=== PATIENT | female | born 1950 | race Asian ===

== ENCOUNTER 2017-03-24 18:42 | Emergency (ER) | payer MEDICARE, MEDICAID | END 2017-03-24 20:29 | disposition home or self-care (01) | LOC: ERS 18:42 | DX: B37.2 Candidiasis of skin and nail (principal); M19.90 Unspecified osteoarthritis, unspecified site | CPT/HCPCS: 36416; 99283 ==

== ENCOUNTER 2017-04-27 08:53 | Emergency (ER) | payer MEDICARE, MEDICAID ==
[2017-04-27] MEDS ORDERED: Acetaminophen 325 MG TAB ONE (10:30)
[2017-04-27] MEDS ORDERED: Dexamethasone 4 MG TAB ONE (11:15)
== END 2017-04-27 11:25 | disposition home or self-care (01) ==
LOC: ERS 08:53
DX: J02.9 Acute pharyngitis, unspecified (principal)
CPT/HCPCS: 87081; 87430; 99283; J8540

== ENCOUNTER 2017-06-01 08:00 | Outpatient (CLI) | payer MEDICARE, MEDICAID | END 2017-06-01 08:01 | disposition home or self-care (01) | LOC: BICMRI 08:00 | PROVIDERS: ATTEND Orthopaedic Surgery Hand Surgery | DX: S83.209A Unspecified tear of unspecified meniscus, current injury, unspecified knee, initial encounter (principal); M25.561 Pain in right knee; M25.562 Pain in left knee; M22.41 Chondromalacia patellae, right knee; M22.42 Chondromalacia patellae, left knee ==

== ENCOUNTER 2017-12-15 16:03 | Outpatient (CLI) | payer MEDICARE, MEDICAID | END 2017-12-15 16:04 | disposition home or self-care (01) | LOC: BICMAMMO 16:03 | PROVIDERS: ATTEND Family Medicine | DX: Z12.31 Encounter for screening mammogram for malignant neoplasm of breast (principal) | CPT/HCPCS: 77063; 77067 ==

== ENCOUNTER 2018-03-31 07:25 | Day surgery (SDC) | payer MEDICARE, MEDICAID ==
[2018-03-30 09:18] VITALS: BMI 22.1
--- NOTE | 2018-03-31 11:38 | OP ---
DATE OF SERVICE: 03/31/2018 PROCEDURE: Colonoscopy with snare polypectomy. SURGEON: Iron Hair M.D. ANESTHESIA: Medication given per Anesthesiology Department. PREOPERATIVE DIAGNOSIS: Colon screening. POSTOPERATIVE DIAGNOSES: 1. Three colon polyps, cecum, hepatic flexure, and sigmoid colon. 2. Otherwise normal colon exam. PROCEDURE IN DETAIL: A written consent was obtained prior to procedure. After adequate sedation, re ctal exam performed was normal. Endoscope was advanced to the cecum. The quality of the bowel prep was good. Three polyps size ranging from 4-5 mm were noted in the cecum, hepatic flexure, and sigmoi d colon. These polyps were removed with cold snare. The remaining of the colon exam was normal. Th e mucosa appeared normal. No other lesion was noted. Retroflexion was normal. The patient tolerate d the procedure well. ASSESSMENT: 1. Three colon polyps, status post snare polypectomy. 2. Otherwise normal colon exam. RECOMMENDATIONS: 1. Await biopsy result. 2. Future surveillance depends on biopsy result.
--- NOTE | 2018-03-31 12:56 | OP ---
PROCEDURE: Esophagogastroduodenoscopy. PHYSICIAN: Iron Hair M.D. MEDICATION: Given per Anesthesiology Department. PREPROCEDURE DIAGNOSIS: Gastroesophageal reflux. POSTPROCEDURE DIAGNOSES: 1. Nonerosive distal esophagitis. 2. Otherwise normal upper endoscopy. PROCEDURE IN DETAILS: Written consent was obtained prior to procedure. After adequate sedation, the forward-viewing endoscope was advanced down the hypopharynx under direct vision to second portion of duodenum. The duodenum appeared normal. The pylorus is patent. The gastric antrum, body, fundus, and cardia all appeared normal. GE junction was noted at 35 cm from the incisors. In the lower 10 c m of the esophagus, mucosal erythema was noted without any evidence of erosions with loss of vascular ity. Endoscopic findings consistent with nonerosive esophagitis. The mid and upper esophagus appear ed normal. Patient tolerated the procedure well. ASSESSMENT: 1. Nonerosive distal esophagitis. 2. Otherwise normal upper endoscopy. RECOMMENDATIONS: 1. Antireflux measures discussed. 2. Omeprazole 20 mg OTC q.a.m.
== END 2018-03-31 11:30 | disposition home or self-care (01) ==
LOC: SDC 07:25
PROVIDERS: ATTEND Internal Medicine Gastroenterology
PROC: 0DBH8ZX Excision of Cecum, Via Natural or Artificial Opening Endoscopic, Diagnostic (ICD-10-PCS; principal; 2018-03-31)
PROC: 0DBL8ZX Excision of Transverse Colon, Via Natural or Artificial Opening Endoscopic, Diagnostic (ICD-10-PCS; 2018-03-31)
PROC: 0DBN8ZZ Excision of Sigmoid Colon, Via Natural or Artificial Opening Endoscopic (ICD-10-PCS; 2018-03-31)
PROC: 0DJ08ZZ Inspection of Upper Intestinal Tract, Via Natural or Artificial Opening Endoscopic (ICD-10-PCS; 2018-03-31)
DX: D12.0 Benign neoplasm of cecum (principal); K63.5 Polyp of colon; K20.9 Esophagitis, unspecified; K58.0 Irritable bowel syndrome with diarrhea; K21.9 Gastro-esophageal reflux disease without esophagitis; E78.00 Pure hypercholesterolemia, unspecified; M19.90 Unspecified osteoarthritis, unspecified site; F99 Mental disorder, not otherwise specified; Z79.83 Long term (current) use of bisphosphonates; Z79.899 Other long term (current) drug therapy; Z88.2 Allergy status to sulfonamides; Z91.013 Allergy to seafood
CPT/HCPCS: 88305

== ENCOUNTER 2018-11-26 15:30 | Outpatient (CLI) | payer MEDICARE, MEDICAID ==
--- NOTE | 2018-11-26 16:33 | BD ---
Exam: DEXA Bone Density 11/26/18 INDICATIONS: Postmenopausal osteoporosis screening. Lumbar Spine: BMD (g/cm2) T-SCORE L1 0.832 -1.4 L2 0.950 -0.7 L3 0.934 -1.4 L4 1.176 1.0 L1-L4 0.984 -0.6 Femoral Neck: 0.543 -2.8 Total Femur: 0.795 -1.2 Impression: 1. Bone mineral density of the femoral neck indicates osteoporosis. 2. Bone mineral density of the lumbar spine within normal range. POS: OFF
== END 2018-11-26 15:31 | disposition home or self-care (01) ==
LOC: BICMAMMO 15:30
PROVIDERS: ATTEND Family Medicine
DX: Z13.820 Encounter for screening for osteoporosis (principal); Z00.00 Encounter for general adult medical examination without abnormal findings; Z78.0 Asymptomatic menopausal state; M85.88 Other specified disorders of bone density and structure, other site
CPT/HCPCS: 77080

== ENCOUNTER 2020-04-03 16:57 | Emergency (ER) | payer MEDICARE, MEDICAID ==
[2020-04-03] MEDS ORDERED: Dicyclomine 20 MG TAB ONE (20:31)
[2020-04-03] MEDS ORDERED: hydrOXYzine Pamoate 25 mg Capsule ONE (20:32)
[2020-04-03] MEDS ORDERED: hydrOXYzine 25 MG TAB ONE (20:33)
== END 2020-04-03 20:36 | disposition home or self-care (01) ==
LOC: ERS 16:57
DX: L50.0 Allergic urticaria (principal); M19.90 Unspecified osteoarthritis, unspecified site
CPT/HCPCS: 99283; Q0177

== ENCOUNTER 2020-08-15 15:37 | Outpatient (CLI) | payer MEDICARE, MEDICAID | END 2020-08-15 15:38 | disposition home or self-care (01) | LOC: BICRAD 15:37 | PROVIDERS: ATTEND Family Medicine | DX: R05 Cough (principal) | CPT/HCPCS: 71046 ==

== ENCOUNTER 2020-08-16 15:24 | Outpatient (CLI) | payer MEDICARE, MEDICAID | END 2020-08-16 15:25 | disposition home or self-care (01) | LOC: BICMAMMO 15:24 | PROVIDERS: ATTEND Family Medicine | DX: Z12.31 Encounter for screening mammogram for malignant neoplasm of breast (principal); Z91.89 Other specified personal risk factors, not elsewhere classified | CPT/HCPCS: 77063; 77067 ==

== ENCOUNTER 2021-03-01 07:59 | Outpatient (CLI) | payer MEDICARE, MEDICAID | END 2021-03-01 08:00 | disposition home or self-care (01) | LOC: BICRAD 07:59 | PROVIDERS: ATTEND Family Medicine | DX: R07.89 Other chest pain (principal) | CPT/HCPCS: 71046 ==

== ENCOUNTER 2021-04-03 07:03 | Outpatient (CLI) | payer MEDICARE, MEDICAID | END 2021-04-03 07:04 | disposition home or self-care (01) | LOC: BICULT 07:03 | PROVIDERS: ATTEND Internal Medicine Gastroenterology | DX: R10.10 Upper abdominal pain, unspecified (principal); R76.8 Other specified abnormal immunological findings in serum | CPT/HCPCS: 76705 ==

== ENCOUNTER 2022-01-09 15:19 | Outpatient (CLI) | payer MEDICARE, MEDICAID | END 2022-01-09 15:20 | disposition home or self-care (01) | LOC: BICMAMMO 15:19 | PROVIDERS: ATTEND Family Medicine | DX: M81.0 Age-related osteoporosis without current pathological fracture (principal); M85.851 Other specified disorders of bone density and structure, right thigh; M85.852 Other specified disorders of bone density and structure, left thigh | CPT/HCPCS: 77080 ==

== ENCOUNTER 2023-07-01 15:08 | Outpatient (CLI) | payer OTHER, MEDICAID | END 2023-07-01 15:09 | disposition home or self-care (01) | LOC: CT 15:08 | PROVIDERS: ATTEND Student in an Organized Health Care Education/Training Program | DX: R91.1 Solitary pulmonary nodule (principal); R05.3 Chronic cough; Z77.22 Contact with and (suspected) exposure to environmental tobacco smoke (acute) (chronic); I70.90 Unspecified atherosclerosis | CPT/HCPCS: 71250 ==